=== PATIENT | female | born 1985 | race Caucasian/White ===

== ENCOUNTER 2018-10-06 09:11 | Outpatient (CLI) | payer BC, OTHER ==
--- NOTE | 2018-10-06 11:16 | MMO ---
Bilateral MAMMO Bilat Diag [facility]. CLINICAL HISTORY: Patient is 32 years old and is seen for diagnostic exam and palpable abnormality in the left breast. The patient has no family history of breast cancer. The patient has no personal history of cancer. VIEWS: The views performed were: bilateral craniocaudal with tomosynthesis; bilateral mediolateral oblique with tomosynthesis; and bilateral mediolateral with tomosynthesis. FILMS COMPARED: The present examination has been compared to a prior imaging study performed at [facility] on 10/06/2018. MAMMOGRAM FINDINGS: The breasts are heterogeneously dense, which could obscure a lesion on mammography. There are several focal asymmetries with circumscribed margins seen in the lower-inner region of the right breast. In the left breast, there are no suspicious masses, calcifications or areas of architectural distortion. IMPRESSION: FOCAL ASYMMETRIES IN THE RIGHT BREAST ARE PROBABLY BENIGN. MULTIPLE CYSTS. THE RESULTS OF THIS EXAM WERE SENT TO THE PATIENT. ACR BI-RADS Category 3 - Probably benign finding - short interval follow-up suggested. [facility] will notify the patient of the need for additional imaging services. MAMMOGRAPHY NOTE: 1. A negative mammogram report should not delay a biopsy if a dominant of clinically suspicious mass is present. 2. Approximately 10% to 15% of breast cancers are not detected by mammography. 3. Adenosis and dense breasts may obscure an underlying neoplasm. Reported by: SUGEY FLANAGAN MD Electonically Signed: [id number]
--- NOTE | 2018-10-06 12:37 | ULT ---
LEFT BREAST ULTRASOUND: 10/06/18 HISTORY: Patient presents with a palpable finding in the left breast. The left breast is evaluated with attention to the palpable finding at 7 o'clock, 5 cm from the nippl e. COMPARISON: Prior 09/21/09 exam. There are multiple circumscribed anechoic cysts in the left breast at 7 o'clock corresponding to the palpable findings. These cysts range over an area of approximately 4.1 cm x 2.3 cm x 1 cm. The cysts in size are up to 0.4 x 0.8 cm individually. There were several cysts seen on the prior study. There do appear to be more cysts demonstrated on to day's study. IMPRESSION: Multiple focal cysts over an area of approximately 1 x 4 x 2.3 cm and overall size with individual cy sts up to approximately 0.4 x 0.8 cm in size. These are somewhat more in number than on a prior 2010 exam. BIRADS 3: Probably Benign Finding Initial Short-Interval Follow-Up Suggested Initial short-term follow up (usually 6-month) examination. Six month ultrasound is recommended for further assessment. Findings were discussed the patient who is in agreement with the proceeding to six month short term s urveillance. POS: OFF
== END 2018-10-06 09:12 | disposition home or self-care (01) ==
LOC: BICMAMMO 09:11
PROVIDERS: ATTEND Obstetrics & Gynecology
DX: N63.20 Unspecified lump in the left breast, unspecified quadrant (principal); N64.89 Other specified disorders of breast; N60.02 Solitary cyst of left breast; N60.01 Solitary cyst of right breast
CPT/HCPCS: 77066; G0279

== ENCOUNTER 2021-05-24 13:02 | Outpatient (CLI) | payer BC | END 2021-05-24 13:03 | disposition home or self-care (01) | LOC: BICMAMMO 13:02 | PROVIDERS: ATTEND Obstetrics & Gynecology | DX: N63.20 Unspecified lump in the left breast, unspecified quadrant (principal); N60.02 Solitary cyst of left breast | CPT/HCPCS: 77066; G0279 ==